=== PATIENT | female | born 1995 | race Caucasian/White ===

== ENCOUNTER 2022-01-16 20:46 | Emergency (ER) | payer OTHER ==
[2022-01-16 21:00] VITALS: BP 107/68; PULSE 78; RESP 18; TEMP 98.5; BMI 35.5
[2022-01-16] MEDS ORDERED: DIPHTH,PERTUSS(ACELL),TET 0.5 ML DISP.SYRIN IM ONE ×2 (22:28→22:44)
[2022-01-16] MEDS ORDERED: DOXYCYCLINE HYCLATE 100 MG CAPSULE PO ONE ×2 (23:38→23:45)
[2022-01-16] MEDS ORDERED: CLINDAMYCIN HCL 300 MG CAPSULE PO ONE (23:38)
[2022-01-16] MEDS ORDERED: CLINDAMYCIN HCL 150 MG CAPSULE (FP) ONE ×2 (23:45)
== END 2022-01-17 11:48 | disposition home or self-care (01) ==
LOC: JERFT 20:46 → JER 20:46 → JERFT 01-17 11:48
PROC: 3E0234Z Introduction of Serum, Toxoid and Vaccine into Muscle, Percutaneous Approach (ICD-10-PCS; principal; 2022-01-16)
DX: S81.852A Open bite, left lower leg, initial encounter (principal); W54.0XXA Bitten by dog, initial encounter; Y92.9 Unspecified place or not applicable
CPT/HCPCS: 73590-TC-LT-FY; 90471; 90715; 99284-25